=== PATIENT | female | born 1995 | race Caucasian/White ===

== ENCOUNTER 2024-02-17 21:07 | Emergency (ER) | payer MEDICAID ==
[~2024-02-17] VITALS: Ht 163.8 cm; Wt 57.8 kg
[2024-02-17 21:09] VITALS: TEMP 98.3; O2SAT 97; O2SAT 98
[2024-02-17] MEDS: TETRACAINE 0.5% OPHTH DROPS 4ML RIGHTEYE ONE (22:44)
[2024-02-17] MEDS ORDERED: OCUFLX RIGHTEYE (22:46)
[2024-02-17] MEDS ORDERED: IBUP-2030 MT (22:46)
[2024-02-17] MEDS: IBUPROFEN 800MG TABLET PO ONE (22:57)
[2024-02-17 22:58] VITALS: BP 120/80; PULSE 91; RESP 16
[2024-02-17] MEDS: IBUPROFEN 400MG TABLET PO NR (22:58)
== END 2024-02-17 23:02 | disposition home or self-care (01) ==
LOC: ER 21:07
DX: H10.9 Unspecified conjunctivitis (principal); F41.9 Anxiety disorder, unspecified; Z88.0 Allergy status to penicillin; Z88.2 Allergy status to sulfonamides; Z98.890 Other specified postprocedural states
CPT/HCPCS: 99283